=== PATIENT | male | born 1945 | race Asian ===

== ENCOUNTER 2023-07-28 16:36 | Observation (INO) | payer OTHER ==
[2023-07-28] MEDS: SODIUM CHLORIDE 500 ML IV STA (17:28)
[2023-07-28 17:45] LABS: BASO % 0.8 % (0-2.0); EOS % 3.2 % (0-4.5); HEMATOCRIT 43.4 % (35.4-49); HEMOGLOBIN 14.2 GM/dL (11.7-16.9); MCH 30.7 pg (25.7-33.7); MCHC 32.8 g/dl (32.0-35.9); MEAN CELL VOLUME 93.6 fl (80-96); MEAN PLT VOLUME 8.6 fl (7.5-11.1); MONO % 6.5 % (3.8-10.2); NEUT % 35.5 % (42.8-82.8); PLATELET COUNT 111 10^3/uL (134-434); RBC 4.63 M/mm3 (4.00-5.60); RDW 13.2 % (11.9-15.9); WHITE BLOOD COUNT 5.1 K/mm3 (4.0-10.0)
[2023-07-28] MEDS ORDERED: MECLIZINE HCL 25 MG TABLET (FP) ONE (17:53)
[2023-07-28 18:08] LABS: POTASSIUM 4.3 mmol/L (3.5-5.1)
[2023-07-28 18:11] LABS: CALCIUM 8.7 mg/dL (8.5-10.1)
[2023-07-28 18:12] LABS: ALBUMIN 3.5 g/dl (3.4-5.0); BLOOD UREA NITROGEN 21.4 mg/dL (7-18)
[2023-07-28 18:15] LABS: CREATININE 0.9 mg/dL (0.55-1.3)
[2023-07-28 18:16] LABS: TOT PROT 6.7 g/dl (6.4-8.2)
[2023-07-28 18:17] LABS: BILIRUBIN,TOTAL 0.7 mg/dL (0.2-1)
[2023-07-28] MEDS: MECLIZINE HCL 25 MG TABLET (FP) PO ONE (18:36)
[2023-07-28 18:45] LABS: PH,URINE 6.5 (5.0-8.0); URINE APPEARANCE CLEAR; URINE BILIRUBIN NEGATIVE (NEGATIVE); URINE COLOR YELLOW; URINE GLUCOSE (UA) NEGATIVE (NEGATIVE); URINE KETONE NEGATIVE (NEGATIVE); URINE LEUK ESTERASE NEGATIVE (NEGATIVE); URINE NITRITE NEGATIVE (NEGATIVE); URINE PROTEIN NEGATIVE (NEGATIVE); URINE UROBILINOGEN 0.2 mg/dL (0.2-1.0)
[2023-07-28 22:53] VITALS: BMI 25.2
[2023-07-29 06:54] LABS: BASO % 0.4 % (0-2.0); EOS % 3.8 % (0-4.5); HEMATOCRIT 42.9 % (35.4-49); HEMOGLOBIN 14.1 GM/dL (11.7-16.9); LYMPH % 56.6 % (8-40); MCH 30.9 pg (25.7-33.7); MCHC 32.8 g/dl (32.0-35.9); MEAN CELL VOLUME 94.4 fl (80-96); MEAN PLT VOLUME 8.8 fl (7.5-11.1); MONO % 5.6 % (3.8-10.2); NEUT % 33.6 % (42.8-82.8); PLATELET COUNT 110 10^3/uL (134-434); RBC 4.54 M/mm3 (4.00-5.60); RDW 13.2 % (11.9-15.9); WHITE BLOOD COUNT 5.7 K/mm3 (4.0-10.0)
[2023-07-29 07:09] LABS: POTASSIUM 4.1 mmol/L (3.5-5.1)
[2023-07-29 07:19] LABS: ALBUMIN 3.4 g/dl (3.4-5.0); BLOOD UREA NITROGEN 16.3 mg/dL (7-18); CALCIUM 8.3 mg/dL (8.5-10.1)
[2023-07-29 07:22] LABS: CREATININE 0.8 mg/dL (0.55-1.3)
[2023-07-29 07:24] LABS: BILIRUBIN,TOTAL 1.2 mg/dL (0.2-1); TOT PROT 6.2 g/dl (6.4-8.2)
[2023-07-29] MEDS: ENOXAPARIN NA (PORCINE) 40 MG/0.4 ML DISP.SYRIN SQ SCH (09:45)
[2023-07-29] MEDS: MECLIZINE HCL 25 MG TABLET (FP) PO PRN (09:46)
[2023-07-29 10:39] VITALS: RESP 20
[2023-07-29 14:24] VITALS: BP 124/93; PULSE 63; TEMP 98.1
[2023-07-29] MEDS ORDERED: ATORVASTATIN CA 10 MG TABLET (FP) PO SCH (22:00)
== END 2023-07-29 18:17 | disposition home or self-care (01) ==
LOC: JER 16:36 → JERBED 20:34 → J4W 22:37
PROVIDERS: ADMIT Student in an Organized Health Care Education/Training Program; ATTEND Internal Medicine
PROC: 3E023GC Introduction of Other Therapeutic Substance into Muscle, Percutaneous Approach (ICD-10-PCS; principal; 2023-07-28)
PROC: 3E0337Z Introduction of Electrolytic and Water Balance Substance into Peripheral Vein, Percutaneous Approach (ICD-10-PCS; 2023-07-28)
DX: R42 Dizziness and giddiness (principal); I10 Essential (primary) hypertension; E78.5 Hyperlipidemia, unspecified; R00.1 Bradycardia, unspecified
CPT/HCPCS: 0241U-QW; 36415; 70450-TC; 71046-TC-FY; 72125-TC; 72170-TC-FY; 80053; 81003; 82550; 84100; 84484; 85025; 85730; 86850; 86900; 86901; 93005; 93010; 96360; 96372; 99285-25; G0378